=== PATIENT | female | born 1980 | race Caucasian/White ===

== ENCOUNTER 2020-01-05 13:32 | Inpatient (IN) | payer BC, MEDICAID ==
[~2020-01-05] VITALS: Ht 167.6 cm; Wt 113.4 kg
[2020-01-05] MEDS ORDERED: PNV91TAB8 PO (14:01)
[2020-01-05] MEDS ORDERED: LACTATED RINGERS 1,000 ML IV SCH (14:05)
[2020-01-05 14:22] VITALS: BP 115/72
[2020-01-05] MEDS ORDERED: CLINDAMYCIN 900 MG in DEXTROSE 5% 100 ML IV SCH (15:00)
[2020-01-05 15:10] LABS: ALBUMIN 2.1 g/dL (3.4-5.0); ANION GAP 15.7 (8-16); BASOPHILS % (AUTO) 0.3 % (0.0-2.0); CARBON DIOXIDE 22.4 mmol/L (21-32); CREATININE 0.9 mg/dL (0.6-1.3); EOSINOPHILS % (AUTO) 0.7 % (0.0-4.0); HEMOGLOBIN 13.1 g/dL (12.0-16.0); LYMPHOCYTES # (AUTO) 1.1 K/uL (2.5-16.5); LYMPHOCYTES % (AUTO) 27.5 % (20.5-51.1); MEAN CORPUSCULAR HEMOGLOBIN 31 pg (27-31); MEAN CORPUSCULAR HGB CONC 33 g/dL (33-37); MEAN CORPUSCULAR VOLUME 95.2 fL (80-94); MONOCYTES # (AUTO) 0.3 K/uL (0.8-1.0); MONOCYTES % (AUTO) 7.3 % (1.7-9.3); NEUTROPHILS # (AUTO) 2.6 K/uL (1.8-7.7); NEUTROPHILS % (AUTO) 64.2 % (42.2-75.2); PLATELET COUNT (AUTO) 211 K/uL (140-450); POTASSIUM 4.1 mmol/L (3.5-5.1); RED BLOOD CELL COUNT(AUTO) 4.21 MIL/uL (4.20-5.40); RED CELL DISTRIBUTION WIDTH 13.9 % (11.6-13.7); TOTAL BILIRUBIN 0.2 mg/dL (0.0-1.0)
[2020-01-05] MEDS ORDERED: MORPHINE SULFATE 4 MG/ML SYR ONE ×2 (19:55→21:21)
[2020-01-05] MEDS ORDERED: MORPHINE SULFATE 10 MG/ML VIAL ONE ×2 (19:55→20:22)
[2020-01-05] MEDS ORDERED: PROPOFOL 200 MG/20 ML VIAL IV ONE (19:55)
[2020-01-05] MEDS ORDERED: OXYTOCIN 10 UNITS/ML VIAL ONE (19:55)
[2020-01-05] MEDS ORDERED: ONDANSETRON 4 MG/2 ML VIAL ONE (19:55)
[2020-01-05] MEDS ORDERED: DEXAMETHASONE 4 MG/ML VIAL ONE (19:55)
[2020-01-05] MEDS ORDERED: HYDROmorphone PFS 2 MG/ML SYR ONE ×2 (19:55→20:16)
[2020-01-05] MEDS ORDERED: DESFLURANE 240 ML BTL INH ONE (19:55)
[2020-01-05] MEDS ORDERED: SUCCINYLCHOLINE CHLORIDE 200 MG/10 ML VIAL IVP ONE (19:55)
[2020-01-05] MEDS ORDERED: METHYLERGONOVINE 0.2 MG/ML AMP IM PRN (20:15)
[2020-01-05] MEDS ORDERED: oxyCODONE/APAP 5/325 MG 1 TAB TAB PO PRN (20:15)
[2020-01-05] MEDS ORDERED: TEMAZEPAM 15 MG CAP PO PRN (20:15)
[2020-01-05] MEDS ORDERED: ONDANSETRON 4 MG/2 ML VIAL IVP PRN (20:25)
[2020-01-05] MEDS ORDERED: OXYTOCIN 20 UNITS/LR PREMIX 1,000 ML IV SCH ×2 (20:33→22:47)
[2020-01-05] MEDS ORDERED: IBUPROFEN 800 MG TAB PO PRN (20:35)
[2020-01-05] MEDS ORDERED: KETOROLAC 30 MG/ML VIAL IVP PRN (20:35)
[2020-01-05] MEDS: MORPHINE SULFATE 2 MG/ML SYR IVP PRN ×2 (21:20→21:30)
[2020-01-05] MEDS: OXYTOCIN 20 UNITS in LACTATED RINGERS 1,000 ML IV SCH ×2 (21:24→21:45)
[2020-01-06 06:08] LABS: BASOPHILS % (AUTO) 0.1 % (0.0-2.0); HEMOGLOBIN 12.5 g/dL (12.0-16.0); LYMPHOCYTES # (AUTO) 0.9 K/uL (2.5-16.5); LYMPHOCYTES % (AUTO) 9.6 % (20.5-51.1); MEAN CORPUSCULAR HEMOGLOBIN 31 pg (27-31); MEAN CORPUSCULAR HGB CONC 33 g/dL (33-37); MEAN CORPUSCULAR VOLUME 95.1 fL (80-94); MONOCYTES # (AUTO) 0.3 K/uL (0.8-1.0); MONOCYTES % (AUTO) 3.5 % (1.7-9.3); NEUTROPHILS # (AUTO) 8.5 K/uL (1.8-7.7); NEUTROPHILS % (AUTO) 86.8 % (42.2-75.2); PLATELET COUNT (AUTO) 205 K/uL (140-450); RED BLOOD CELL COUNT(AUTO) 3.99 MIL/uL (4.20-5.40); RED CELL DISTRIBUTION WIDTH 13.9 % (11.6-13.7); WHITE BLOOD COUNT (AUTO) 9.8 K/uL (4.8-10.8)
[2020-01-06] MEDS ORDERED: OXYTOCIN 20 UNITS in LACTATED RINGERS 1,000 ML IM SCH (08:55)
[2020-01-06] MEDS: SIMETHICONE 80 MG TAB.CHEW PO PRN ×2 (08:59→16:44)
[2020-01-06] MEDS ORDERED: SODIUM PHOSPHATE 118 ML ENEM RC SCH (09:00)
--- NOTE | 2020-01-06 09:01 | NUR ---
PATIENT HAS BEEN SCREENED AND CATEGORIZED LOW NUTRITION RISK. PATIENT WILL BE SEEN WITHIN 7 DAYS OF ADMISSION. 01/12/[address]
[2020-01-06] MEDS: oxyCODONE/APAP 5/325 MG 1 TAB TAB PO PRN (16:43)
[2020-01-06] MEDS: DOCUSATE SOD/SENNA 50/8.6 MG 1 TAB PO SCH (21:21)
[2020-01-07] MEDS: oxyCODONE/APAP 5/325 MG 1 TAB TAB PO PRN ×2 (03:39→18:44)
[2020-01-07] MEDS: SIMETHICONE 80 MG TAB.CHEW PO PRN (08:57)
[2020-01-07] MEDS: DOCUSATE SOD/SENNA 50/8.6 MG 1 TAB PO SCH (21:13)
[2020-01-08] MEDS ORDERED: CAMERA MC ONE (05:07)
[2020-01-08] MEDS: oxyCODONE/APAP 5/325 MG 1 TAB TAB PO PRN (06:41)
[2020-01-08] MEDS ORDERED: ACET-5629 PO ×2 (14:28→14:30)
[2020-01-08] MEDS ORDERED: FERR325E14 PO (14:39)
[2020-01-08] MEDS ORDERED: IBUP-2213 PO (14:40)
== END 2020-01-08 16:30 | disposition home or self-care (01) | DRG 787 ==
LOC: MLD 13:32 → MFCC 13:33 → OBSVTOIN 15:22 → MFCC 01-06 00:24
PROVIDERS: ADMIT Obstetrics & Gynecology; ATTEND Obstetrics & Gynecology
PROC: 6A550ZT Pheresis of Cord Blood Stem Cells, Single (ICD-10-PCS; 2020-01-05)
PROC: 10D00Z1 Extraction of Products of Conception, Low, Open Approach (ICD-10-PCS; principal; 2020-01-05 20:00)
DX: O34.211 Maternal care for low transverse scar from previous cesarean delivery (principal); O41.03X0 Oligohydramnios, third trimester, not applicable or unspecified; O36.8130 Decreased fetal movements, third trimester, not applicable or unspecified; Z37.0 Single live birth; Z3A.38 38 weeks gestation of pregnancy
CPT/HCPCS: 36415; 76819; 80053; 85025; 86592; 86886; 86900; 86901; G0378; J0330; J1100; J1170; J2270; J2405; J2590; J2704; J3490; J7060; J7120; Q0092